=== PATIENT | male | born 1935 | race Caucasian/White ===

== ENCOUNTER 2017-05-07 10:04 | Inpatient (IN) | payer OTHER ==
[~2017-05-07] VITALS: Ht 172.7 cm; Wt 63.7 kg
[~2017-05-07 10:04] MED LIST: ALBU90OI6; ASPI325 PO; Antivert25 MG PO; BECL80OI INH; CYAN1000 PO; FERR325 PO; FISH1000 PO; GABA100 PO; HYDACE5 PO; HYDCHL25 PO; LEVSOD100 PO; LISI5; LOSA50 PO; METPRE4DP PO; MULVITMINF PO; POTCHL20ER PO; QVAR7.3 G1 IH; SIMV10 PO; WARF2.5 PO; WARF3 PO; Xalatan2.5 ML LEFTEYE
[2017-05-07 11:40] LABS: BASOPHILS ABSOLUTE AUTO 0.03 K/mm3 (0.00-0.23); BASOPHILS PERCENT AUTO 1 % (0-2); EOSINOPHILS ABSOLUTE AUTO 0.13 K/mm3 (0.00-0.68); EOSINOPHILS PERCENT AUTO 3 % (0-6); Hematocrit 18.9 % (37.0-53.0); IMMATURE GRAN ABSOLUTE AUTO 0.02 K/mm3 (0.00-0.10); IMMATURE GRAN PERCENT AUTO 0 % (0-1); LYMPHOCYTES ABSOLUTE AUTO 0.76 K/mm3 (0.84-5.20); LYMPHOCYTES PERCENT AUTO 17 % (21-46); MONOCYTES ABSOLUTE AUTO 0.45 K/mm3 (0.16-1.47); MONOCYTES PERCENT AUTO 10 % (4-13); Mean Corpuscular HGB 28.2 pg (26.0-34.0); Mean Corpuscular HGB Conc 30.2 g/dL (31.5-36.5); Mean Corpuscular Volume 94 fL (80-100); Mean Platelet Volume 9.4 fL (9.1-12.4); NEUTROPHILS ABSOLUTE AUTO 3.09 K/mm3 (1.96-9.15); NEUTROPHILS PERCENT AUTO 69 % (41-73); Platelet Count 322 K/mm3 (150-400); RDW Coefficient Variation 14.6 % (11.7-14.2); RDW Standard Deviation 50.2 fL (35.1-46.3); Red Blood Cell Count 2.02 M/mm3 (4.30-5.90); White Blood Cell Count 4.48 K/mm3 (4.00-11.30)
[2017-05-07 11:49] LABS: Hemoglobin 5.7 g/dL (13.5-17.5)
[2017-05-07 11:50] LABS: International Normalized Ratio 1.89
[2017-05-07 12:00] LABS: Alanine Aminotransfer (ALT/SGP 15 U/L (12-78); Albumin, Blood 2.8 g/dL (3.4-5.0); Albumin/Globulin Ratio 0.8 (0.8-1.8); Alk Phos 53 U/L (50-136); Anion Gap 9 mmol/L (6-16); Aspartate Aminotrans (AST/SGOT 19 U/L (12-37); Bilirubin, Total 0.3 mg/dL (0.1-1.0); Blood Urea Nitrogen 29 mg/dL (8-24); Bun/Creatinine Ratio 16.8 (12.0-20.0); CO2, Blood 21 mmol/L (21-32); Calcium, Blood 7.9 mg/dL (8.5-10.1); Chloride, Blood 109 mmol/L (98-108); Creatinine, Blood 1.73 mg/dL (0.60-1.20); Globulin, Blood 3.3 g/dL (2.2-4.0); Glomerular Filtration Rate 40 (60-); Glucose, Blood 139 mg/dL (70-99); Potassium, Blood 4.3 mmol/L (3.5-5.5); Sodium, Blood 139 mmol/L (136-145); Total Protein, Blood 6.1 g/dL (6.4-8.2)
[2017-05-07 12:02] LABS: Troponin I <0.015 ng/mL (0.000-0.040)
[2017-05-07 12:54] LABS: Percent Saturation 22.2 % (20.0-50.0)
[2017-05-07] MEDS ORDERED: [UNRECOGNIZED DRUG - CODE] PO (14:04)
[2017-05-07] MEDS ORDERED: [UNRECOGNIZED DRUG - CODE] (14:06)
[2017-05-07 19:49] LABS: Hematocrit 25.9 % (37.0-53.0); Hemoglobin 8.5 g/dL (13.5-17.5)
[2017-05-08 04:44] LABS: BASOPHILS ABSOLUTE AUTO 0.05 K/mm3 (0.00-0.23); BASOPHILS PERCENT AUTO 1 % (0-2); EOSINOPHILS ABSOLUTE AUTO 0.09 K/mm3 (0.00-0.68); EOSINOPHILS PERCENT AUTO 2 % (0-6); Hematocrit 24.2 % (37.0-53.0); IMMATURE GRAN ABSOLUTE AUTO 0.01 K/mm3 (0.00-0.10); IMMATURE GRAN PERCENT AUTO 0 % (0-1); LYMPHOCYTES ABSOLUTE AUTO 0.94 K/mm3 (0.84-5.20); LYMPHOCYTES PERCENT AUTO 16 % (21-46); MONOCYTES ABSOLUTE AUTO 0.67 K/mm3 (0.16-1.47); MONOCYTES PERCENT AUTO 11 % (4-13); Mean Corpuscular HGB 29.3 pg (26.0-34.0); Mean Corpuscular HGB Conc 33.1 g/dL (31.5-36.5); Mean Platelet Volume 9.2 fL (9.1-12.4); NEUTROPHILS ABSOLUTE AUTO 4.17 K/mm3 (1.96-9.15); NEUTROPHILS PERCENT AUTO 70 % (41-73); Platelet Count 295 K/mm3 (150-400); RDW Standard Deviation 48.6 fL (35.1-46.3); Red Blood Cell Count 2.73 M/mm3 (4.30-5.90); White Blood Cell Count 5.93 K/mm3 (4.00-11.30)
[2017-05-08 04:52] LABS: Mean Corpuscular Volume 89 fL (80-100)
[2017-05-08 05:06] LABS: Albumin, Blood 2.9 g/dL (3.4-5.0); Albumin/Globulin Ratio 0.9 (0.8-1.8); Bilirubin, Total 1.3 mg/dL (0.1-1.0); Bun/Creatinine Ratio 15.8 (12.0-20.0); Calcium, Blood 7.9 mg/dL (8.5-10.1); Creatinine, Blood 1.58 mg/dL (0.60-1.20); Globulin, Blood 3.1 g/dL (2.2-4.0); Potassium, Blood 4.4 mmol/L (3.5-5.5)
[2017-05-09 05:01] LABS: BASOPHILS ABSOLUTE AUTO 0.04 K/mm3 (0.00-0.23); BASOPHILS PERCENT AUTO 1 % (0-2); EOSINOPHILS ABSOLUTE AUTO 0.05 K/mm3 (0.00-0.68); EOSINOPHILS PERCENT AUTO 1 % (0-6); Hematocrit 27.6 % (37.0-53.0); Hemoglobin 8.9 g/dL (13.5-17.5); IMMATURE GRAN ABSOLUTE AUTO 0.03 K/mm3 (0.00-0.10); IMMATURE GRAN PERCENT AUTO 0 % (0-1); LYMPHOCYTES PERCENT AUTO 14 % (21-46); MONOCYTES ABSOLUTE AUTO 0.78 K/mm3 (0.16-1.47); MONOCYTES PERCENT AUTO 11 % (4-13); Mean Corpuscular HGB Conc 32.2 g/dL (31.5-36.5); Mean Corpuscular Volume 90 fL (80-100); Mean Platelet Volume 9.1 fL (9.1-12.4); NEUTROPHILS ABSOLUTE AUTO 5.43 K/mm3 (1.96-9.15); NEUTROPHILS PERCENT AUTO 74 % (41-73); Platelet Count 291 K/mm3 (150-400); RDW Coefficient Variation 14.5 % (11.7-14.2); RDW Standard Deviation 47.2 fL (35.1-46.3); Red Blood Cell Count 3.07 M/mm3 (4.30-5.90); White Blood Cell Count 7.33 K/mm3 (4.00-11.30)
[2017-05-09 05:28] LABS: Bun/Creatinine Ratio 15.2 (12.0-20.0); Calcium, Blood 8.3 mg/dL (8.5-10.1); Creatinine, Blood 1.65 mg/dL (0.60-1.20)
[2017-05-09] MEDS ORDERED: ACET325 PO (10:38)
[2017-05-09] MEDS ORDERED: AMLO5 PO (10:39)
[2017-05-09] MEDS ORDERED: Ferrous Sulfat325 M2 PO (10:40)
== END 2017-05-09 11:04 | disposition home or self-care (01) | DRG 378 ==
LOC: ER 10:04 → PCU 12:20
PROVIDERS: Internal Medicine Gastroenterology; Physician Assistant; Student in an Organized Health Care Education/Training Program
PROC: 30233N1 Transfusion of Nonautologous Red Blood Cells into Peripheral Vein, Percutaneous Approach (ICD-10-PCS; 2017-05-07)
PROC: 0DB68ZX Excision of Stomach, Via Natural or Artificial Opening Endoscopic, Diagnostic (ICD-10-PCS; 2017-05-08)
PROC: 0W3P8ZZ Control Bleeding in Gastrointestinal Tract, Via Natural or Artificial Opening Endoscopic (ICD-10-PCS; principal; 2017-05-08 13:30)
DX: K92.2 Gastrointestinal hemorrhage, unspecified (principal); I13.0 Hypertensive heart and chronic kidney disease with heart failure and stage 1 through stage 4 chronic kidney disease, or unspecified chronic kidney disease; I95.9 Hypotension, unspecified; D51.3 Other dietary vitamin B12 deficiency anemia; I48.91 Unspecified atrial fibrillation; I50.9 Heart failure, unspecified; K92.1 Melena; D50.0 Iron deficiency anemia secondary to blood loss (chronic); N18.3 Chronic kidney disease, stage 3 (moderate); I99.8 Other disorder of circulatory system; Z79.01 Long term (current) use of anticoagulants; K22.70 Barrett's esophagus without dysplasia; G47.33 Obstructive sleep apnea (adult) (pediatric); E03.9 Hypothyroidism, unspecified; E78.5 Hyperlipidemia, unspecified; Z87.891 Personal history of nicotine dependence; K44.9 Diaphragmatic hernia without obstruction or gangrene; Z87.11 Personal history of peptic ulcer disease; R42 Dizziness and giddiness; R47.81 Slurred speech
CPT/HCPCS: 36415; 36430; 70450; 80048; 80053; 82272; 83540; 83550; 84484; 85014; 85018; 85025; 85610; 85730; 86850; 86900; 86901; 86923; 93005; 93010; 94640; 94760; 99285; C9113; J2250; J7120; P9016

== ENCOUNTER 2017-11-11 18:41 | Emergency (ER) | payer OTHER ==
[~2017-11-11] VITALS: Ht 170.2 cm; Wt 63.5 kg
[~2017-11-11 18:41] MED LIST changes: +ACET325 PO; +AMLO5 PO; +Ferrous Sulfat325 M2 PO; +[UNRECOGNIZED DRUG - CODE]; +[UNRECOGNIZED DRUG - CODE] PO
[2017-11-11] MEDS ORDERED: WARF3 PO (19:41)
[2017-11-11 19:54] LABS: BASOPHILS ABSOLUTE AUTO 0.05 K/mm3 (0.00-0.23); BASOPHILS PERCENT AUTO 1 % (0-2); EOSINOPHILS ABSOLUTE AUTO 0.16 K/mm3 (0.00-0.68); EOSINOPHILS PERCENT AUTO 2 % (0-6); Hematocrit 39.3 % (37.0-53.0); Hemoglobin 13.2 g/dL (13.5-17.5); IMMATURE GRAN ABSOLUTE AUTO 0.02 K/mm3 (0.00-0.10); IMMATURE GRAN PERCENT AUTO 0 % (0-1); LYMPHOCYTES ABSOLUTE AUTO 2.52 K/mm3 (0.84-5.20); LYMPHOCYTES PERCENT AUTO 31 % (21-46); MONOCYTES ABSOLUTE AUTO 0.74 K/mm3 (0.16-1.47); MONOCYTES PERCENT AUTO 9 % (4-13); Mean Corpuscular HGB 31.7 pg (26.0-34.0); Mean Corpuscular HGB Conc 33.6 g/dL (31.5-36.5); Mean Corpuscular Volume 95 fL (80-100); Mean Platelet Volume 9.5 fL (9.1-12.4); NEUTROPHILS ABSOLUTE AUTO 4.62 K/mm3 (1.96-9.15); NEUTROPHILS PERCENT AUTO 57 % (41-73); Platelet Count 220 K/mm3 (150-400); RDW Coefficient Variation 12.6 % (11.7-14.2); RDW Standard Deviation 44.1 fL (35.1-46.3); Red Blood Cell Count 4.16 M/mm3 (4.30-5.90); White Blood Cell Count 8.11 K/mm3 (4.00-11.30)
[2017-11-11 20:25] LABS: Albumin/Globulin Ratio 1.1 (0.8-1.8); Bilirubin, Total 0.4 mg/dL (0.1-1.0); Bun/Creatinine Ratio 15.7 (12.0-20.0); Calcium, Blood 8.8 mg/dL (8.5-10.1); Creatinine, Blood 1.97 mg/dL (0.60-1.20); Globulin, Blood 3.8 g/dL (2.2-4.0); Potassium, Blood 4.2 mmol/L (3.5-5.5); Total Protein, Blood 7.8 g/dL (6.4-8.2)
[2017-11-11] MEDS ORDERED: (None)20 M1 PO (21:07)
== END 2017-11-11 21:24 | disposition home or self-care (01) ==
LOC: ER 18:41
PROVIDERS: Physician Assistant
DX: J45.901 Unspecified asthma with (acute) exacerbation (principal); I13.0 Hypertensive heart and chronic kidney disease with heart failure and stage 1 through stage 4 chronic kidney disease, or unspecified chronic kidney disease; N18.3 Chronic kidney disease, stage 3 (moderate); I50.9 Heart failure, unspecified; I48.91 Unspecified atrial fibrillation; E03.9 Hypothyroidism, unspecified; Z79.899 Other long term (current) drug therapy; Z79.01 Long term (current) use of anticoagulants; Z87.891 Personal history of nicotine dependence
CPT/HCPCS: 36415; 80053; 84484; 85025; 93005; 93010; 94644; J2930

== ENCOUNTER 2018-08-05 07:37 | Emergency (ER) | payer OTHER ==
[~2018-08-05] VITALS: Ht 170.2 cm; Wt 66.2 kg
[~2018-08-05 07:37] MED LIST changes: +(None)20 M1 PO
[2018-08-05 08:22] LABS: BASOPHILS ABSOLUTE AUTO 0.07 K/mm3 (0.00-0.23); BASOPHILS PERCENT AUTO 1 % (0-2); EOSINOPHILS ABSOLUTE AUTO 1.01 K/mm3 (0.00-0.68); EOSINOPHILS PERCENT AUTO 13 % (0-6); Hematocrit 42.3 % (37.0-53.0); Hemoglobin 13.7 g/dL (13.5-17.5); IMMATURE GRAN ABSOLUTE AUTO 0.02 K/mm3 (0.00-0.10); IMMATURE GRAN PERCENT AUTO 0 % (0-1); LYMPHOCYTES ABSOLUTE AUTO 1.39 K/mm3 (0.84-5.20); LYMPHOCYTES PERCENT AUTO 18 % (21-46); MONOCYTES ABSOLUTE AUTO 0.73 K/mm3 (0.16-1.47); MONOCYTES PERCENT AUTO 9 % (4-13); Mean Corpuscular HGB 31.3 pg (26.0-34.0); Mean Corpuscular HGB Conc 32.4 g/dL (31.5-36.5); Mean Corpuscular Volume 97 fL (80-100); Mean Platelet Volume 9.9 fL (9.1-12.4); NEUTROPHILS ABSOLUTE AUTO 4.72 K/mm3 (1.96-9.15); NEUTROPHILS PERCENT AUTO 59 % (41-73); Platelet Count 217 K/mm3 (150-400); RDW Coefficient Variation 12.9 % (11.7-14.2); RDW Standard Deviation 46.3 fL (35.1-46.3); Red Blood Cell Count 4.38 M/mm3 (4.30-5.90); White Blood Cell Count 7.94 K/mm3 (4.00-11.30)
[2018-08-05] MEDS ORDERED: ELIQUIS2.5 MG PO (08:42)
[2018-08-05] MEDS ORDERED: MONT10T PO (08:42)
[2018-08-05] MEDS ORDERED: ASCO500 PO (08:42)
[2018-08-05] MEDS ORDERED: LATA.005SO BOTHEYES (08:42)
[2018-08-05] MEDS ORDERED: FISH OIL + D31 EACH PO (08:43)
[2018-08-05 08:50] LABS: Troponin I <0.015 ng/mL (0.000-0.040)
[2018-08-05 08:51] LABS: Alanine Aminotransfer (ALT/SGP 20 U/L (12-78); Albumin, Blood 3.6 g/dL (3.4-5.0); Alk Phos 79 U/L (50-136); Anion Gap 3 mmol/L (6-16); Aspartate Aminotrans (AST/SGOT 19 U/L (12-37); Bilirubin, Total 0.6 mg/dL (0.1-1.0); Blood Urea Nitrogen 27 mg/dL (8-24); Bun/Creatinine Ratio 16.2 (12.0-20.0); CO2, Blood 27 mmol/L (21-32); Calcium, Blood 8.5 mg/dL (8.5-10.1); Chloride, Blood 112 mmol/L (98-108); Creatinine, Blood 1.67 mg/dL (0.60-1.20); Globulin, Blood 3.5 g/dL (2.2-4.0); Glomerular Filtration Rate 42 (60-); Glucose, Blood 100 mg/dL (70-99); Potassium, Blood 4.6 mmol/L (3.5-5.5); Sodium, Blood 142 mmol/L (136-145); Total Protein, Blood 7.1 g/dL (6.4-8.2)
[2018-08-05] MEDS ORDERED: Zithromax250 MG PO (09:20)
[2018-08-05] MEDS ORDERED: Prednisone20 MG PO (09:20)
== END 2018-08-05 09:41 | disposition home or self-care (01) ==
LOC: ER 07:37
PROVIDERS: Emergency Medicine
DX: J44.1 Chronic obstructive pulmonary disease with (acute) exacerbation (principal); I13.0 Hypertensive heart and chronic kidney disease with heart failure and stage 1 through stage 4 chronic kidney disease, or unspecified chronic kidney disease; I50.9 Heart failure, unspecified; N18.3 Chronic kidney disease, stage 3 (moderate); E03.9 Hypothyroidism, unspecified; Z79.899 Other long term (current) drug therapy; Z79.01 Long term (current) use of anticoagulants; Z79.52 Long term (current) use of systemic steroids
CPT/HCPCS: 36415; 71046; 80053; 83880; 84484; 85025; 93005; 93010; 94640; 99284-25

== ENCOUNTER → 2019-07-19 | Outpatient (CLI) | payer OTHER ==
[~2019-07-19] MED LIST changes: +ASCO500 PO; +ELIQUIS2.5 MG PO; +FISH OIL + D31 EACH PO; +LATA.005SO BOTHEYES; +MONT10T PO; +Prednisone20 MG PO; +Zithromax250 MG PO
== END | disposition home or self-care (01) ==
LOC: LAB SHORT 08:11 → PLD 08:11
DX: L72.9 Follicular cyst of the skin and subcutaneous tissue, unspecified (principal); B88.9 Infestation, unspecified
CPT/HCPCS: 88305; 88312

== ENCOUNTER 2020-10-06 17:54 | Emergency (ER) | payer OTHER ==
[~2020-10-06] VITALS: Ht 175.3 cm; Wt 72.6 kg
[~2020-10-06 17:54] MED LIST changes: +ALBU90OI INH; +CEPH500 PO
[2020-10-06 18:34] LABS: BASOPHILS ABSOLUTE AUTO 0.05 K/mm3 (0.00-0.23); BASOPHILS PERCENT AUTO 1 % (0-2); EOSINOPHILS ABSOLUTE AUTO 0.26 K/mm3 (0.00-0.68); EOSINOPHILS PERCENT AUTO 4 % (0-6); Hematocrit 40.6 % (37.0-53.0); Hemoglobin 13.7 g/dL (13.5-17.5); IMMATURE GRAN ABSOLUTE AUTO 0.02 K/mm3 (0.00-0.10); IMMATURE GRAN PERCENT AUTO 0 % (0-1); LYMPHOCYTES ABSOLUTE AUTO 1.48 K/mm3 (0.84-5.20); LYMPHOCYTES PERCENT AUTO 23 % (21-46); MONOCYTES ABSOLUTE AUTO 0.75 K/mm3 (0.16-1.47); MONOCYTES PERCENT AUTO 12 % (4-13); Mean Corpuscular HGB 30.7 pg (26.0-34.0); Mean Corpuscular HGB Conc 33.7 g/dL (31.5-36.5); Mean Corpuscular Volume 91 fL (80-100); Mean Platelet Volume 9.8 fL (9.1-12.4); NEUTROPHILS ABSOLUTE AUTO 3.82 K/mm3 (1.96-9.15); NEUTROPHILS PERCENT AUTO 60 % (41-73); Platelet Count 225 K/mm3 (150-400); RDW Coefficient Variation 12.8 % (11.7-14.2); RDW Standard Deviation 42.9 fL (35.1-46.3); Red Blood Cell Count 4.46 M/mm3 (4.30-5.90); White Blood Cell Count 6.38 K/mm3 (4.00-11.30)
[2020-10-06 18:54] LABS: Alanine Aminotransfer (ALT/SGP 19 U/L (12-78); Albumin, Blood 3.7 g/dL (3.4-5.0); Alk Phos 75 U/L (50-136); Anion Gap 8 mmol/L (6-16); Aspartate Aminotrans (AST/SGOT 21 U/L (12-37); Bilirubin, Total 0.5 mg/dL (0.1-1.0); Blood Urea Nitrogen 25 mg/dL (8-24); Bun/Creatinine Ratio 14.7 (12.0-20.0); CO2, Blood 25 mmol/L (21-32); Calcium, Blood 8.7 mg/dL (8.5-10.1); Chloride, Blood 107 mmol/L (98-108); Globulin, Blood 3.8 g/dL (2.2-4.0); Glomerular Filtration Rate 38 (60-); Glucose, Blood 104 mg/dL (70-99); Potassium, Blood 4.5 mmol/L (3.5-5.5); Sodium, Blood 140 mmol/L (136-145); Total Protein, Blood 7.5 g/dL (6.4-8.2); Troponin I <0.015 ng/mL (0.000-0.040)
[2020-10-06] MEDS ORDERED: ALBU90OI INH (19:40)
== END 2020-10-06 19:58 | disposition home or self-care (01) ==
LOC: ER 17:54
PROVIDERS: Physician Assistant
DX: J45.909 Unspecified asthma, uncomplicated (principal); I13.0 Hypertensive heart and chronic kidney disease with heart failure and stage 1 through stage 4 chronic kidney disease, or unspecified chronic kidney disease; N18.30 Chronic kidney disease, stage 3 unspecified; I50.9 Heart failure, unspecified; Z87.891 Personal history of nicotine dependence
CPT/HCPCS: 36415; 71046; 80053; 84484; 85025; 93005; 93010; 94640; 99285-25

== ENCOUNTER 2021-01-08 18:18 | Emergency (ER) | payer OTHER ==
[~2021-01-08] VITALS: Ht 167.6 cm; Wt 61.2 kg
[2021-01-08 19:02] LABS: BASOPHILS ABSOLUTE AUTO 0.06 K/mm3 (0.00-0.23); BASOPHILS PERCENT AUTO 1 % (0-2); EOSINOPHILS ABSOLUTE AUTO 0.19 K/mm3 (0.00-0.68); EOSINOPHILS PERCENT AUTO 3 % (0-6); Hematocrit 40.2 % (37.0-53.0); Hemoglobin 13.4 g/dL (13.5-17.5); IMMATURE GRAN ABSOLUTE AUTO 0.01 K/mm3 (0.00-0.10); IMMATURE GRAN PERCENT AUTO 0 % (0-1); LYMPHOCYTES PERCENT AUTO 20 % (21-46); MONOCYTES ABSOLUTE AUTO 0.64 K/mm3 (0.16-1.47); MONOCYTES PERCENT AUTO 12 % (4-13); Mean Corpuscular HGB Conc 33.3 g/dL (31.5-36.5); Mean Corpuscular Volume 93 fL (80-100); Mean Platelet Volume 10.1 fL (9.1-12.4); NEUTROPHILS ABSOLUTE AUTO 3.51 K/mm3 (1.96-9.15); NEUTROPHILS PERCENT AUTO 64 % (41-73); Platelet Count 254 K/mm3 (150-400); RDW Standard Deviation 44.6 fL (35.1-46.3); Red Blood Cell Count 4.32 M/mm3 (4.30-5.90); White Blood Cell Count 5.51 K/mm3 (4.00-11.30)
[2021-01-08 19:29] LABS: Troponin I <0.015 ng/mL (0.000-0.040)
[2021-01-08 19:36] LABS: Alanine Aminotransfer (ALT/SGP 24 U/L (12-78); Albumin, Blood 3.4 g/dL (3.4-5.0); Albumin/Globulin Ratio 0.8 (0.8-1.8); Alk Phos 80 U/L (50-136); Anion Gap 7 mmol/L (6-16); Aspartate Aminotrans (AST/SGOT 19 U/L (12-37); Bilirubin, Total 0.5 mg/dL (0.1-1.0); Blood Urea Nitrogen 26 mg/dL (8-24); Bun/Creatinine Ratio 14.1 (12.0-20.0); CO2, Blood 27 mmol/L (21-32); Calcium, Blood 8.8 mg/dL (8.5-10.1); Chloride, Blood 107 mmol/L (98-108); Creatinine, Blood 1.84 mg/dL (0.60-1.20); Glomerular Filtration Rate 35 (60-); Glucose, Blood 107 mg/dL (70-99); Potassium, Blood 4.2 mmol/L (3.5-5.5); Sodium, Blood 141 mmol/L (136-145); Total Protein, Blood 7.4 g/dL (6.4-8.2)
[2021-01-08] MEDS ORDERED: ELIQUIS2.5 M1 PO (19:38)
[2021-01-09] MEDS ORDERED: AMLO5 PO (00:11)
== END 2021-01-08 20:20 | disposition home or self-care (01) ==
LOC: ER 18:18
PROVIDERS: Physician Assistant
DX: I35.0 Nonrheumatic aortic (valve) stenosis (principal); I13.0 Hypertensive heart and chronic kidney disease with heart failure and stage 1 through stage 4 chronic kidney disease, or unspecified chronic kidney disease; I50.9 Heart failure, unspecified; N18.30 Chronic kidney disease, stage 3 unspecified; I48.91 Unspecified atrial fibrillation; J45.909 Unspecified asthma, uncomplicated; E03.9 Hypothyroidism, unspecified; G47.33 Obstructive sleep apnea (adult) (pediatric); Z79.899 Other long term (current) drug therapy; Z79.01 Long term (current) use of anticoagulants
CPT/HCPCS: 36415; 71045; 80053; 84484; 85025; 93005; 93010; 99285-25; A9270

== ENCOUNTER 2021-02-08 18:10 | Emergency (ER) | payer OTHER ==
[~2021-02-08] VITALS: Ht 170.2 cm; Wt 59.0 kg
[~2021-02-08 18:10] MED LIST changes: +ELIQUIS2.5 M1 PO
[2021-02-08 18:44] LABS: BASOPHILS ABSOLUTE AUTO 0.05 K/mm3 (0.00-0.23); BASOPHILS PERCENT AUTO 1 % (0-2); EOSINOPHILS PERCENT AUTO 3 % (0-6); Hematocrit 43.3 % (37.0-53.0); Hemoglobin 14.4 g/dL (13.5-17.5); IMMATURE GRAN ABSOLUTE AUTO 0.02 K/mm3 (0.00-0.10); IMMATURE GRAN PERCENT AUTO 0 % (0-1); LYMPHOCYTES ABSOLUTE AUTO 1.49 K/mm3 (0.84-5.20); LYMPHOCYTES PERCENT AUTO 22 % (21-46); MONOCYTES ABSOLUTE AUTO 0.78 K/mm3 (0.16-1.47); MONOCYTES PERCENT AUTO 11 % (4-13); Mean Corpuscular HGB 30.8 pg (26.0-34.0); Mean Corpuscular HGB Conc 33.3 g/dL (31.5-36.5); Mean Corpuscular Volume 93 fL (80-100); Mean Platelet Volume 9.7 fL (9.1-12.4); NEUTROPHILS ABSOLUTE AUTO 4.37 K/mm3 (1.96-9.15); NEUTROPHILS PERCENT AUTO 63 % (41-73); Platelet Count 249 K/mm3 (150-400); RDW Coefficient Variation 13.2 % (11.7-14.2); RDW Standard Deviation 45.1 fL (35.1-46.3); Red Blood Cell Count 4.68 M/mm3 (4.30-5.90); White Blood Cell Count 6.91 K/mm3 (4.00-11.30)
[2021-02-08 18:50] LABS: Bicarbonate Venous 23.7 mmol/L (24.0-30.0); PCO2 Venous 52.1 mmHg (38-42); PO2 Venous 36.5 mmHg (38-42); pH Blood Venous 7.32 (7.34-7.37)
[2021-02-08 18:52] LABS: Bicarbonate Venous 23.7 mmol/L (24.0-30.0); PCO2 Venous 52.1 mmHg (38-42); PO2 Venous 36.5 mmHg (38-42); pH Blood Venous 7.32 (7.34-7.37)
[2021-02-08 19:05] LABS: Alanine Aminotransfer (ALT/SGP 23 U/L (12-78); Albumin, Blood 3.8 g/dL (3.4-5.0); Albumin/Globulin Ratio 0.9 (0.8-1.8); Alk Phos 80 U/L (50-136); Anion Gap 5 mmol/L (6-16); Aspartate Aminotrans (AST/SGOT 21 U/L (12-37); Bilirubin, Total 0.5 mg/dL (0.1-1.0); Blood Urea Nitrogen 33 mg/dL (8-24); CO2, Blood 27 mmol/L (21-32); Calcium, Blood 9.3 mg/dL (8.5-10.1); Chloride, Blood 108 mmol/L (98-108); Creatinine, Blood 2.06 mg/dL (0.60-1.20); Globulin, Blood 4.2 g/dL (2.2-4.0); Glomerular Filtration Rate 31 (60-); Glucose, Blood 126 mg/dL (70-99); Potassium, Blood 4.4 mmol/L (3.5-5.5); Sodium, Blood 140 mmol/L (136-145); Troponin I <0.015 ng/mL (0.000-0.040)
== END 2021-02-08 21:10 | disposition home or self-care (01) ==
LOC: ER 18:10
PROVIDERS: Emergency Medicine; Physician Assistant
DX: J45.901 Unspecified asthma with (acute) exacerbation (principal); I48.91 Unspecified atrial fibrillation; I13.0 Hypertensive heart and chronic kidney disease with heart failure and stage 1 through stage 4 chronic kidney disease, or unspecified chronic kidney disease; N18.30 Chronic kidney disease, stage 3 unspecified; I50.9 Heart failure, unspecified; E03.9 Hypothyroidism, unspecified; Z87.891 Personal history of nicotine dependence; Z79.899 Other long term (current) drug therapy
CPT/HCPCS: 36415; 71046; 80053; 82803; 83735; 83880; 84145; 84484; 85025; 93005; 93010; 94644; 99285-25; J2930

== ENCOUNTER 2022-01-31 13:04 | Emergency (ER) | payer OTHER ==
[~2022-01-31] VITALS: Ht 177.8 cm; Wt 68.0 kg
[2022-01-31 14:53] LABS: BASOPHILS ABSOLUTE AUTO 0.05 K/mm3 (0.00-0.23); BASOPHILS PERCENT AUTO 1 % (0-2); EOSINOPHILS ABSOLUTE AUTO 0.27 K/mm3 (0.00-0.68); EOSINOPHILS PERCENT AUTO 4 % (0-6); Hematocrit 41.1 % (37.0-53.0); Hemoglobin 13.8 g/dL (13.5-17.5); IMMATURE GRAN ABSOLUTE AUTO 0.03 K/mm3 (0.00-0.10); IMMATURE GRAN PERCENT AUTO 0 % (0-1); LYMPHOCYTES ABSOLUTE AUTO 1.49 K/mm3 (0.84-5.20); LYMPHOCYTES PERCENT AUTO 20 % (21-46); MONOCYTES ABSOLUTE AUTO 0.88 K/mm3 (0.16-1.47); MONOCYTES PERCENT AUTO 12 % (4-13); Mean Corpuscular HGB 30.1 pg (26.0-34.0); Mean Corpuscular HGB Conc 33.6 g/dL (31.5-36.5); Mean Corpuscular Volume 90 fL (80-100); Mean Platelet Volume 10.1 fL (9.1-12.4); NEUTROPHILS ABSOLUTE AUTO 4.72 K/mm3 (1.96-9.15); NEUTROPHILS PERCENT AUTO 64 % (41-73); Platelet Count 220 K/mm3 (150-400); RDW Standard Deviation 42.1 fL (35.1-46.3); Red Blood Cell Count 4.59 M/mm3 (4.30-5.90); White Blood Cell Count 7.44 K/mm3 (4.00-11.30)
[2022-01-31 15:08] LABS: Alanine Aminotransfer (ALT/SGP 30 U/L (12-78); Albumin, Blood 3.5 g/dL (3.4-5.0); Albumin/Globulin Ratio 0.8 (0.8-1.8); Alk Phos 79 U/L (50-136); Anion Gap 6 mmol/L (6-16); Aspartate Aminotrans (AST/SGOT 23 U/L (12-37); Bilirubin, Total 0.4 mg/dL (0.1-1.0); Blood Urea Nitrogen 31 mg/dL (8-24); Bun/Creatinine Ratio 16.9 (12.0-20.0); CO2, Blood 28 mmol/L (21-32); Calcium, Blood 9.1 mg/dL (8.5-10.1); Chloride, Blood 105 mmol/L (98-108); Creatinine, Blood 1.83 mg/dL (0.60-1.20); Ethanol (Alcohol), Blood, Med <3 mg/dL; Globulin, Blood 4.2 g/dL (2.2-4.0); Glomerular Filtration Rate 35 (60-); Glucose, Blood 102 mg/dL (70-99); Potassium, Blood 4.3 mmol/L (3.5-5.5); Sodium, Blood 139 mmol/L (136-145); Total Protein, Blood 7.7 g/dL (6.4-8.2)
[2022-01-31 16:53] LABS: Influenza A, PCR NEGATIVE (NEGATIVE); Influenza B, PCR NEGATIVE (NEGATIVE); Resp Syncytial Virus, PCR NEGATIVE (NEGATIVE); SARS-Cov-2 (COVID-19) PCR, MMC NEGATIVE (NEGATIVE)
[2022-01-31 17:02] LABS: Source, Urine Clean Catch
[2022-01-31 17:40] LABS: Appearance, Urine Clear (Clear); Bilirubin, Urine Neg (Neg); Blood, Urine Neg (Neg); Color, Urine Yellow (P-Yellow); Glucose Qualitative, Urine Neg (Neg); Ketones, Urine Neg (Neg); Leukocyte Esterase, Urine Neg (Neg); Nitrite, Urine Neg (Neg); Protein, Urine 1+ (Neg); Urobilinogen, Urine NORM (Normal)
[2022-01-31 19:58] LABS: U Amphetamine Screen Not Detected; U Barbituate Screen Not Detected; U Benzodiazapine Screen Not Detected; U Buprenorphine Screen Not Detected; U Cannabinoids Screen Not Detected; U Cocaine Screen Not Detected; U Methadone Screen Not Detected; U Methamphetamine Screen Not Detected; U Opiates Screen Not Detected; U Oxycodone Screen Not Detected; U Phencyclidine Screen Not Detected; U Propoxyphene Screen Not Detected
== END 2022-01-31 19:13 | disposition home or self-care (01) ==
LOC: ER 13:04
PROVIDERS: Student in an Organized Health Care Education/Training Program
DX: R40.4 Transient alteration of awareness (principal); R33.9 Retention of urine, unspecified; R47.89 Other speech disturbances; Z79.899 Other long term (current) drug therapy; J45.909 Unspecified asthma, uncomplicated; I48.91 Unspecified atrial fibrillation; I13.0 Hypertensive heart and chronic kidney disease with heart failure and stage 1 through stage 4 chronic kidney disease, or unspecified chronic kidney disease; N18.30 Chronic kidney disease, stage 3 unspecified; I50.9 Heart failure, unspecified; G47.33 Obstructive sleep apnea (adult) (pediatric); E03.9 Hypothyroidism, unspecified; Z87.891 Personal history of nicotine dependence
CPT/HCPCS: 0241U; 36415; 51702; 51798; 70450; 70496; 70498; 80053; 85025; 93005; 93010; G0480; J7030; Q9967

== ENCOUNTER 2022-05-07 06:59 | Inpatient (IN) | payer OTHER ==
[~2022-05-07] VITALS: Ht 177.8 cm; Wt 72.9 kg
[2022-05-07 07:24] LABS: BASOPHILS ABSOLUTE AUTO 0.12 K/mm3 (0.00-0.23); BASOPHILS PERCENT AUTO 1 % (0-2); EOSINOPHILS ABSOLUTE AUTO 0.04 K/mm3 (0.00-0.68); EOSINOPHILS PERCENT AUTO 0 % (0-6); Hematocrit 42.5 % (37.0-53.0); Hemoglobin 14.2 g/dL (13.5-17.5); IMMATURE GRAN ABSOLUTE AUTO 0.08 K/mm3 (0.00-0.10); IMMATURE GRAN PERCENT AUTO 1 % (0-1); LYMPHOCYTES ABSOLUTE AUTO 2.42 K/mm3 (0.84-5.20); LYMPHOCYTES PERCENT AUTO 14 % (21-46); MONOCYTES ABSOLUTE AUTO 1.46 K/mm3 (0.16-1.47); MONOCYTES PERCENT AUTO 9 % (4-13); Mean Corpuscular HGB 30.5 pg (26.0-34.0); Mean Corpuscular HGB Conc 33.4 g/dL (31.5-36.5); Mean Corpuscular Volume 91 fL (80-100); Mean Platelet Volume 10.1 fL (9.1-12.4); NEUTROPHILS ABSOLUTE AUTO 12.64 K/mm3 (1.96-9.15); NEUTROPHILS PERCENT AUTO 76 % (41-73); NRBC ABSOLUTE 0.02 K/mm3 (0.00-0.02); NRBC Auto 0.1 /100 WBC (0.0-0.2); Platelet Count 206 K/mm3 (150-400); RDW Standard Deviation 43.7 fL (35.1-46.3); Red Blood Cell Count 4.66 M/mm3 (4.30-5.90); White Blood Cell Count 16.76 K/mm3 (4.00-11.30)
[2022-05-07 07:44] LABS: Albumin, Blood 3.9 g/dL (3.4-5.0); Bilirubin, Total 0.5 mg/dL (0.1-1.0); Bun/Creatinine Ratio 17.1 (12.0-20.0); Calcium, Blood 9.4 mg/dL (8.5-10.1); Creatinine, Blood 2.46 mg/dL (0.60-1.20); Globulin, Blood 3.9 g/dL (2.2-4.0); Potassium, Blood 5.1 mmol/L (3.5-5.5); Total Protein, Blood 7.8 g/dL (6.4-8.2)
[2022-05-07 08:02] LABS: Creatine Kinase MB 11.2 ng/mL (0.0-3.6); Creatine Kinase MB Index 3.2 (0.0-4.0)
--- NOTE | 2022-05-07 12:45 | NUR ---
INITIAL ASSESSMENT PATIENT ARRIVED TO UNIT ORIENTED TO SELF, AND FOLLOWING SIMPLE COMMANDS. PATIENT HAS FLAT AFFECT. PATIENT RESTLESS, PICKING AT LINES, CORDS, SHEETS, TRYING TO GET OUT OF BED. GOOD AT REDIRECTING. PATIENT WEAK BUT ABLE TO MOVE ALL EXTREMITIES. PATIENT DENIES PAIN. PATIENT NORMOTHERMIC. PATIENT SATTING 90% AND GREATER ON RA. LUNGS CLEAR. PATIENT OCCASIONALLY PACED WITH UNDERLYING A.FIB. HR AND BP STABLE. MURMUR NOTED. GI WNL. MCGUIRE DRAINING YELLOW COLORED URINE. SCATTERED BRUISES AND ABRASIONS NOTED TO BILAT LOWER EXTREMITIES AND TOP OF R HAND. BILAT FEET REDDENED WITH ABRASIONS AND BRUISES. NS INFUSING AT 125 MLS/ HOUR. AT BEDSIDE. AND PATIENT ORIENTED TO UNIT, ROOM AND CALL SYSTEM. WILL CONTINUE TO MONITOR.
[2022-05-07] MEDS ORDERED: GABA300 PO (13:51)
[2022-05-07] MEDS ORDERED: ELIQUIS2.5 MG PO (13:52)
[2022-05-07] MEDS ORDERED: AMLO5 PO (13:52)
[2022-05-07] MEDS ORDERED: LEVSOD100 PO (13:53)
--- NOTE | 2022-05-07 14:14 | NUR ---
Pt. is mostly non responsive. Spouse and Pts. daughter are present and welcome my visit. Facilitate a life review. Family verbalizes that Pt. has dementia and he left the house last night and was found by others. Listen with empathy and calming present. Rapport is established with the family who are present. Prayed for the Pt. and family. Family verbalized gratitude for the spiritual care visit.
[2022-05-07 14:37] LABS: Source, Urine Foley catheter
[2022-05-07 14:46] LABS: Appearance, Urine Hazy (Clear); Bilirubin, Urine Neg (Neg); Blood, Urine 4+ (Neg); Color, Urine Yellow (P-Yellow); Glucose Qualitative, Urine Neg (Neg); Ketones, Urine Neg (Neg); Leukocyte Esterase, Urine Neg (Neg); Nitrite, Urine Neg (Neg); Protein, Urine 2+ (Neg); Urobilinogen, Urine NORM (Normal)
[2022-05-07 15:39] LABS: Hyaline Casts 0-2 /lpf (0-2); Mucus Mod (0-Heavy)
[2022-05-07 15:40] LABS: Bacteria Many /hpf; Squamous Epithelial Cells Rare /hpf (Few); White Blood Cells, Urine 0-2 /hpf (0-5)
[2022-05-07 15:41] LABS: Amorphous Mod (0-Heavy); Renal Epithelial Rare /hpf (0-Rare); Transitional Epithelial Cells Few /hpf (0-Rare)
--- NOTE | 2022-05-07 18:48 | NUR ---
SHIFT SUMMARY PATIENT MORE AWAKE AND ORIENTED SINCE ARRIVING TO UNIT. PATIENT ORIENTED TO SELF, FAMILY, FOLLOWING DIRECTIONS. PATIENT EATING DINNER; ASSISTING. PATIENT REMAINS WITH GARBLED SPEECH (BASELINE). PATIENT LESS RESTLESS THAN WHEN FIRST ARRIVED. PATIENT WEAK BUT ABLE TO MOVE ALL EXTREMITIES. PATIENT HAS DENIED PAIN ALL SHIFT. PATIENT HAS REMAINED NORMOTHERMIC. PATIENT HAS REMAINED SATTING 90% AND GREATER ON RA. PATIENT DOES HAVE SOME WHEEZING AT TIMES AND PATIENT'S REPORTS THAT HE DOES OCCASIONALLY AT HOME WELL. PATIENT A. FIB TO PACED. HR 60S TO 70S. SBP LOW 100S TO 150S. SMALL SMEAR OF STOOL THIS SHIFT. MCGUIRE DRAINED 335 MLS OF DARK YELLOW URINE. NO CHANGES TO SKIN. PATIENT REPOSITIONED Q2H. PATIENT HAD 500 CC BOLUS OF NS. NS NOW INFUSING AT 125 MLS/ HOUR. , SON AND DAUGHTER IN LAW HAVE BEEN AT BEDSIDE. REMAINS AT BEDSIDE. BED LOW, CALL LIGHT IN REACH. REPORT WILL BE GIVEN TO ASSUMING GOLD BEATER NURSE SHORTLY.
--- NOTE | 2022-05-07 19:00 | NUR ---
ASSUMED CARE ASSUMED CARE OF PATIENT. AWAKE AND ALERT. RESTLESS BEHAVIOR- PULLING ON TUBES/LINES AND ATTEMPTING TO CLIMB OUT OF BED. ORIENTED TO SELF AND TO ONLY. OCCASIONALLY FOLLOWS SIMPLE COMMANDS AND IS OCCASIONALLY REDIRECTABLE. MOVES ALL EXTREMITIES. SPEECH IS MUMBLED. MONITOR SHOWS PACED RHYTHM. BP STABLE. MCGUIRE PATENT AND DRAINING TO GRAVITY. NS INFUSING AT 125MLS/HR PER ORDER. SEE SHIFT ASSESSMENT FOR FULL ASSESSMENT.
--- NOTE | 2022-05-07 20:05 | NUR ---
AGITATION/RESTLESSNESS PT IS CONTINUALLY TRYING TO CLIMB OUT OF BED AND IS PULLING ON MCGUIRE CATHETER AND IVs. UNABLE TO REDIRECT AT THIS TIME. IS AT BEDSIDE AND IS VERY FRUSTRATED WITH PT'S ACTIONS. IS REQUESTING "SOMETHING TO CALM HIM DOWN." CALL TO DR. LOCKETT AT THIS TIME- NEW ORDERS RECEIVED.
--- NOTE | 2022-05-07 20:10 | NUR ---
PT'S REMAINS AT BEDSIDE AND IS EXTREMELY FRUSTRATED WITH PT'S AGITATION. STATES THAT SHE IS EXHAUSTED, BUT CAN'T LEAVE HER . EXPLAINED TO HER THAT WE HAVE A STAFF MEMBER THAT WILL BE SITTING AT PT'S BEDSIDE AND ENCOURAGED HER TO GO HOME AND GET SOME REST. AGREES TO THIS PLAN.
--- NOTE | 2022-05-07 20:55 | NUR ---
ATIVAN CONTINUES WITH AGITATION AND RESTLESSNESS. NOT REDIRECTABLE AT THIS TIME. UNCOOPERATIVE WITH CARE. MEDICATED WITH ATIVAN 1MG IV. ALSO ATTEMPTED TO GIVE PATIENT PO MEDS, BUT PT WILL NOT COOPERATE. PO MEDS HELD FOR NOW.
[2022-05-08 03:47] LABS: BASOPHILS ABSOLUTE AUTO 0.02 K/mm3 (0.00-0.23); BASOPHILS PERCENT AUTO 0 % (0-2); EOSINOPHILS ABSOLUTE AUTO 0.02 K/mm3 (0.00-0.68); EOSINOPHILS PERCENT AUTO 0 % (0-6); Hematocrit 34.2 % (37.0-53.0); Hemoglobin 11.6 g/dL (13.5-17.5); IMMATURE GRAN ABSOLUTE AUTO 0.07 K/mm3 (0.00-0.10); IMMATURE GRAN PERCENT AUTO 1 % (0-1); LYMPHOCYTES ABSOLUTE AUTO 0.94 K/mm3 (0.84-5.20); LYMPHOCYTES PERCENT AUTO 7 % (21-46); MONOCYTES ABSOLUTE AUTO 1.12 K/mm3 (0.16-1.47); MONOCYTES PERCENT AUTO 9 % (4-13); Mean Corpuscular HGB 30.7 pg (26.0-34.0); Mean Corpuscular HGB Conc 33.9 g/dL (31.5-36.5); Mean Corpuscular Volume 91 fL (80-100); Mean Platelet Volume 10.6 fL (9.1-12.4); NEUTROPHILS ABSOLUTE AUTO 11.01 K/mm3 (1.96-9.15); NEUTROPHILS PERCENT AUTO 84 % (41-73); Platelet Count 155 K/mm3 (150-400); RDW Coefficient Variation 13.4 % (11.7-14.2); RDW Standard Deviation 44.3 fL (35.1-46.3); Red Blood Cell Count 3.78 M/mm3 (4.30-5.90); White Blood Cell Count 13.18 K/mm3 (4.00-11.30)
[2022-05-08 04:08] LABS: Albumin/Globulin Ratio 0.9 (0.8-1.8); Bilirubin, Total 0.7 mg/dL (0.1-1.0); Bun/Creatinine Ratio 23.9 (12.0-20.0); Calcium, Blood 8.1 mg/dL (8.5-10.1); Creatinine, Blood 1.97 mg/dL (0.60-1.20); Globulin, Blood 3.2 g/dL (2.2-4.0); Potassium, Blood 4.5 mmol/L (3.5-5.5); Total Protein, Blood 6.2 g/dL (6.4-8.2)
--- NOTE | 2022-05-08 06:11 | NUR ---
SHIFT SUMMARY NO ACUTE CHANGES. PT SLEPT MOST OF NOC, BUT DID HAVE OCCASIONAL PERIODS OF AGITATION AND RESTLESSNESS. MEDICATED WITH ATIVAN 1MG IV X 1 DOSE DURING SHIFT. CONTINUES TO BE ORIENTED TO SELF ONLY. MOVES ALL EXTREMITIES WEAKLY. OCCASIONALLY FOLLOWS SIMPLE COMMANDS. SPEECH IS GARBLED. MONITOR SHOWS VENTRICULAR PACED RHYTHM, RATE 60. BP STABLE. TMAX 99.3F THIS AM. NPO AT THIS TIME D/T RESPONSIVENESS. INCONTINENT OF LOOSE BROWN STOOL THIS AM. MCGUIRE PATENT AND DRAINING TO GRAVITY. NS INFUSING AT 125MLs/HR PER ORDER. WILL REPORT TO ONCOMING RN WHEN AVAILABLE.
--- NOTE | 2022-05-08 08:00 | NUR ---
ASSUMED CARE PT. RESTING QUIETLY AT THIS TIME. BRIEFLY AWAKENS TO VERBAL STIMULI, BUT VERY DROWSY AND SPEECH DIFFICULT TO UNDERSTAND. PT COUGHS THEN RETURNS TO SLEEP. REPOSITIONED FOR COMFORT. NS INFUSING. PT. HAS BRUISES AND SKIN TEARS T/O. AFEBRILE THIS AM. PT. VSS. FAMILY AT BEDSIDE.
--- NOTE | 2022-05-08 10:26 | NUR ---
Pt. is somnolent and mostly not responsive. Spouse, Son and Daughter are present and welcome my visit. Family is a little unsettled by the unknown care plan for the Pt. and verbalized that they were waiting to see the Pts. doctor. Listen with empathy and a calming presence. Spouse displays evidence of having given the Pt. good care for a long time. Pts. son and DIL are also local and are able to be a source of support. Prayed with Pt. and family. Family verbalized gratitude for the spiritual care visit.
--- NOTE | 2022-05-08 10:30 | NUR ---
DR. SEGOVIA TO BEDSIDE PT. CONTINUES RESTING QUIETLY, OCCASIONALLY COUGHS TO STIMULI. PT. FAMILY AT BEDSIDE. DISCUSSED ANTICOAGULATION WITH DR. SEGOVIA. PLANS TO CHANGE TO [facility] IF NEEDED THIS PM IF PT UNABLE TO TOLERATE PO INTAKE.
--- NOTE | 2022-05-08 16:35 | NUR ---
PT TRANSFERRED TO PCU. FAMILY REMAINS AT BEDSIDE FOR TRANSFER. PT VSS UPON TRANSFER.
--- NOTE | 2022-05-08 19:55 | NUR ---
ASSUMPTION OF CARE THIS RN ASSUMED CARE OF PATIENT AT 1900. REPORT TAKEN FROM BRITNEY DONOHUE. PATIENT IS ALERT WITH EYES OPEN BUT IS ONLY OCCASIONALLY MUMBLING/MOANING TO QUESTIONS. NOT ANSWERING QUESTIONS. NOT FOLLOWING COMMANDS. AUDIBLE WHEEZES HEARD. PER PREVIOUS RN AND , THIS IS PATIENT'S BASELINE. SPO2 >94% ON RA. BP STABLE. PACED RHYTHM IN THE 60'S. TEMP 99.2. PULLING AT GOWN. LINES WELL PROTECTED, BUT WILL WATCH CLOSELY. MCGUIRE TEMP CATH PATENT AND DRAINING DARK YELLOW URINE. REPOSITIONING Q2HRS. BED IN LOWEST POSITION AND CALL LIGHT WITHIN REACH. SIDE RAILS UP. WILL MONITOR CLOSELY D/T CONFUSION.
--- NOTE | 2022-05-09 04:48 | NUR ---
SHIFT SUMMARY NO ACUTE CHANGES OVERNIGHT. VITALS REMAIN STABLE. PATIENT CONTINUES TO HAVE AUDIBLE WHEEZING. BRIAN RT CAME TO ASSESS PATIENT. THIS RN RELAYED THE INFORMATION THAT WAS GIVEN ABOUT WHEEZING BEING THIS PATIENT'S BASELINE. RT INFORMED THIS RN THAT IT IS AN UPPER AIRWAY ISSUE AND THAT BREATHING TREATMENTS WOULD NOT HELP. THIS RN WILL CONTINUE TO WATCH CLOSELY. SPO2 REMAINS 96-99% ON RA. TACHYPNEA NOTED AT TIMES. PATIENT CONTINUES TO ONLY MAKE MOANING/GROANING OCCASIONALLY WHEN ASKED QUESTIONS. NO PURPOSEFUL WORDS NOTED. NOT FOLLOWING COMMANDS. EYES OPEN SPONTANEOUSLY, BUT PATIENT APPEARS MORE LETHARGIC THAN ALERT DURING THIS SHIFT WITH EYES CLOSED. FREQUENT SUCTIONING AND ORAL CARE DONE FOR INCREASED SPUTUM PRODUCTION. NPO DUE TO ASPIRATION PRECAUTIONS D/T MENTATION. REPOSITIONING Q2HRS. FREQUENT BOWEL MOVEMENTS THROUGHOUT THE SHIFT. MCGUIRE CATHETER PATENT AND DRAINING TO GRAVITY. BED IN LOWEST POSITION, BED ALARM ON, RAILS UP, CALL LIGHT WITHIN REACH. THIS RN WILL CONTINUE TO MONITOR UNTIL SHIFT CHANGE AT 0700.
[2022-05-09 06:25] LABS: Bun/Creatinine Ratio 25.6 (12.0-20.0); Calcium, Blood 8.1 mg/dL (8.5-10.1); Creatinine, Blood 1.64 mg/dL (0.60-1.20); Potassium, Blood 4.2 mmol/L (3.5-5.5)
[2022-05-09 06:46] LABS: BASOPHILS ABSOLUTE AUTO 0.04 K/mm3 (0.00-0.23); BASOPHILS PERCENT AUTO 0 % (0-2); EOSINOPHILS ABSOLUTE AUTO 0.02 K/mm3 (0.00-0.68); EOSINOPHILS PERCENT AUTO 0 % (0-6); Hemoglobin 12.6 g/dL (13.5-17.5); IMMATURE GRAN ABSOLUTE AUTO 0.05 K/mm3 (0.00-0.10); IMMATURE GRAN PERCENT AUTO 0 % (0-1); LYMPHOCYTES ABSOLUTE AUTO 0.95 K/mm3 (0.84-5.20); LYMPHOCYTES PERCENT AUTO 8 % (21-46); MONOCYTES ABSOLUTE AUTO 1.28 K/mm3 (0.16-1.47); MONOCYTES PERCENT AUTO 10 % (4-13); Mean Corpuscular HGB 30.6 pg (26.0-34.0); Mean Corpuscular HGB Conc 33.2 g/dL (31.5-36.5); Mean Corpuscular Volume 92 fL (80-100); Mean Platelet Volume 10.5 fL (9.1-12.4); NEUTROPHILS PERCENT AUTO 81 % (41-73); Platelet Count 144 K/mm3 (150-400); RDW Coefficient Variation 13.4 % (11.7-14.2); RDW Standard Deviation 45.8 fL (35.1-46.3); Red Blood Cell Count 4.12 M/mm3 (4.30-5.90); White Blood Cell Count 12.54 K/mm3 (4.00-11.30)
--- NOTE | 2022-05-09 10:39 | NUR ---
CARE ASSUMPTION This RN assumed care at 0700. Vital Signs Stable. Spo2>90% on Room Air. Tele v paced occasionally. Patient responds to verbal stimuli and is oriented to self. Patient able to say yes to his name, otherwise patient has moan and groan and mumbbled. Patient has a auditory wheeze. Patient has scattered brusiing and abrasions throughout skin from fall prior to admit, see pictures in chart. Patient has a jordan cath draining with gravity, clear yellow. See shift assessment for further detials. Speech in to see patient and patient unable to follow commands, so patient remains NPO. Patient family at bedside and updated on patients condition and plan. Patient trying to speak with at bedside and speech is very mumbled. Oral care per speech orders. Repositioned every 2 hours to prevent skin breakdown. Call light within reach and bed in lowest position with alarm on.
--- NOTE | 2022-05-09 17:38 | NUR ---
SHIFT SUMMARY/TRANSFER Patient neuro remains unchanged throughout the shift. Patient attempting to get out of bed unsafely and not redirectable by staff or family. Patient in vest restraints for safety. See restraint management. Patient has been repositioned throughout the day. This RN spoke to the family about speaking with a palliative care nurse due to patient current situation. Family asked about if patient doesn't pass swallow evaluation how will the patient eat. This RN provided education and used therpauetic communication. Family verbalized understanding. Plan of care is up to date. This RN gave report to medical floor RN. Patient left in no distess with all of patients belongings and family followed patient up to new room.
--- NOTE | 2022-05-09 19:29 | NUR ---
SHIFT SUMMARY: PT TRANSFER FROM PCU 9, A&O X1, ANXIOUS, PULLING AT TUBES AND LINEN, AND IN A MARY VEST. PT FAMILY PRESENT DURING TRANSFER, PT RECEVIED IM ZYPRIXA AT 1333. PT CONTIUNES TO S/S OF ANXIETY AND PULLING AT TUBING AND LINEN, PT RECEVED IM ZYPRIXA AT 1758. PT HAD AN ELEVATED BP 156/105, PT RECEVIED IV HYDRALAZINE 5MG/ML. PT CONTIUNED TO BE ANXIOUS, PULLING AT TUBING AND LINEN, DR. LOCKETT CONTACTED AND HALDIOL 2.5MG IV Q6H PRN FOR AGITATION OR ANXIOUS. PT IN BED WITH MARY VEST IN PLACE AND FAMILY PRESENT FOR SUPPORT.
--- NOTE | 2022-05-10 06:40 | NUR ---
PT VERY RESTLESS, TACHYPNEIC AT START OF SHIFT. HALDOL 2.5 NOT EFFECTIVE. ATIVAN 2 MG WAS HELPFUL. ATIVAN GIVEN X3. PATIENT MORE RESTFUL BY END OF SHIFT WITH OCCASIONAL MOANS AND RESTLESSNESS. UNABLE TO FULLY ASSESS ORIENTATION, DOES NOT ANSWER QUESTIONS. INCONTINENT OF BOWEL AND BLADDER.
--- NOTE | 2022-05-10 08:00 | NUR ---
pt laying in bed not really responsive to staff, unable to follow commands well, in raz vest, his lungs are wet, course with some wheezing, turned fluids down, to tko, will set up suction, he is on r/a and sats are above 95%, resp even mildly labored, no cough noted, is really unable to cooperate with assessment, hrr, has pacer, murmur noted, iv to lac site is clear and patent, btx4, abd soft no guarding noted, briefs in place for incont, skin c/w/d, maew, shola, call light in reach.
--- NOTE | 2022-05-10 10:59 | NUR ---
Pt unresponsive, airway soft and lungs coarse. review of pt prognosis and possibly not improving. Updated physician on family wanting updates. Review of symproms with pt nurse will get pt some tylenol.
--- NOTE | 2022-05-10 15:26 | NUR ---
PT family repeat meeting after speaking with the physian. He is reccomends hospice. We reviewed hospice and comfort care. Family has agreed to hospice they are going to try to go home may need placement. Family want [facility] hosp[facility] they have used them in the past. Performend extenive suctioning and oral care. updated nursing on plan.
--- NOTE | 2022-05-10 18:06 | NUR ---
pt has had family in to see him today, worked with pallative care, and decision was made to change to comfort care, 14f jordan cath placed without diff, with clear yellow urine returned, 10cc placed in balloon, oral care has been done through out the day and suctioning with silva, restraints were removed around 1500, as well as bedbath and linen change. call light in reach, with music playing.
--- NOTE | 2022-05-11 03:19 | NUR ---
SHIFT SUMMARY NOC PT ON COMFORT CARE AND UNRESPONSIVE BUT AT TIME RESPONDS TO PAIN. PT IS TAKING UNASYN FOR PNA. PT HAS BEEN MEDICATED WITH ROXANOL AND ATIVAN FOR AIRHUNGER/RESTLESSNESS, AND GIVEN ATROPIN DROPS IN CONJUNCTION WITH SCOPALAMINE PATCH BEHIND LEFT EAR TO CONTROL SECRETIONS. ORAL CARE HAS BEEN PROVIDED Q2H TO KEEP MOISTURE IN ORAL CAVITY AND LIMIT BACTERIAL GROWTH. PT HAS NS KVO @ 10 MLS/HR RUNNING. PT IS BEING REPOSITIONED Q2H. MCGUIRE IS PATENT AND DRAINING DARK YELLOW URINE TO GRAVITY. PT IS CURRENTLY UNRESPONSIVE RESTING WITH BED IN LOWEST POSITION, AND CALL LIGHT WITHIN REACH.
--- NOTE | 2022-05-11 18:47 | NUR ---
SHIFT SUMMARY- PT IS AROUSABLE TO PAIN. TREATED PT FOR PAIN PER EMAR. ORAL CARE SEEMED TO BE THE ONLY THING THAT BOTHERED THE PT. NO ACUTE CHANGES THIS SHIFT.
--- NOTE | 2022-05-12 03:35 | NUR ---
ENVIRONMENTAL ENGINEERING PROFESSOR SUMMARY NO ACUTE EVENTS THROUGHOUT THE NIGHT. PATIENT RESPONDS TO PAIN. PAIN ASSESSED AND MEDICATED PER EMAR. BEDSIDE SUCTIONING USED PRN FOR PHLEGM PRODUCTION. PATIENT OTHERWISE APPEARS TO BE TOLERATING SECRETIONS. MCGUIRE CATHETER DRAINING TO GRAVITY. Q-2 HOUR REPOSITIONING AND ORAL CARE. BED LOW AND LOCKED. THIS RN WILL CONTINUE TO MONITOR.
--- NOTE | 2022-05-12 14:51 | NUR ---
DISCHARGE PT PICKED UP BY [facility] AT 1445. FAMILY DENIED ANY FURTHER QUESTIONS PRIOR TO DC. IV REMOVED & INTACTED. HOSPICE TO FOLLOW UP AT PTS HOUSE.
== END 2022-05-12 14:39 | disposition hospice, home (50) | DRG 682 ==
LOC: ER 06:59 → ICUW 07:00 → ICUE 07:00 → MEDS 05-08 15:02 → ICUE 05-08 15:03 → PCU 05-08 16:26 → MEDS 05-09 17:32
PROVIDERS: Emergency Medicine; ADMIT Internal Medicine
DX: N17.9 Acute kidney failure, unspecified (principal); G93.41 Metabolic encephalopathy; J69.0 Pneumonitis due to inhalation of food and vomit; E87.20 Acidosis, unspecified; I13.0 Hypertensive heart and chronic kidney disease with heart failure and stage 1 through stage 4 chronic kidney disease, or unspecified chronic kidney disease; R68.0 Hypothermia, not associated with low environmental temperature; F01.50 Vascular dementia, unspecified severity, without behavioral disturbance, psychotic disturbance, mood disturbance, and anxiety; N18.30 Chronic kidney disease, stage 3 unspecified; Z51.5 Encounter for palliative care; Z66 Do not resuscitate; D53.1 Other megaloblastic anemias, not elsewhere classified; F51.04 Psychophysiologic insomnia; I35.0 Nonrheumatic aortic (valve) stenosis; E53.8 Deficiency of other specified B group vitamins; J45.909 Unspecified asthma, uncomplicated; I48.91 Unspecified atrial fibrillation; E86.0 Dehydration; I50.9 Heart failure, unspecified; G47.33 Obstructive sleep apnea (adult) (pediatric); E03.9 Hypothyroidism, unspecified; Z95.0 Presence of cardiac pacemaker; Z98.890 Other specified postprocedural states; Z98.52 Vasectomy status; Z79.899 Other long term (current) drug therapy; Z79.01 Long term (current) use of anticoagulants
CPT/HCPCS: 36415; 51702; 70450; 71045; 72125; 80048; 80053; 81001; 82550; 82553; 82947; 83605; 83690; 85025; 85384; 87086; 92610; 93005; 93010; 96360-59; 96361; 96374; 99285-25; A9270; G0378; J0295; J0360; J1630; J1644; J2060; J2270; J7030; J7040